=== PATIENT | female | born 1990 | race Two or more races ===

== ENCOUNTER 2023-08-10 09:48 | Outpatient (CLI) | payer OTHER | END 2023-08-10 10:02 | disposition home or self-care (01) | LOC: RAD 09:48 | PROVIDERS: ATTEND Neuromusculoskeletal Medicine, Sports Medicine | DX: M54.6 Pain in thoracic spine (principal) ==

== ENCOUNTER → 2024-01-22 14:55 | Outpatient (CLI) | payer OTHER | END | disposition home or self-care (01) | LOC: RAD 14:55 | PROVIDERS: ATTEND Psychiatry & Neurology Neurology | DX: M54.2 Cervicalgia (principal) ==